=== PATIENT | male | born 1965 | race Caucasian/White ===

== ENCOUNTER 2019-12-01 17:03 | Emergency (ER) | payer SELFPAY ==
[~2019-12-01] VITALS: Ht 182.9 cm; Wt 127.2 kg
[2019-12-01 17:13] VITALS: BP 143/95
[2019-12-01] MEDS ORDERED: DIPH,PERTUSS(ACELL),TET VAC/PF 0.5 ML SYRINGE. VAX IM ONE ×2 (17:41→17:45)
[2019-12-01] MEDS ORDERED: AMOX1TAB61 PO (18:00)
--- NOTE | 2019-12-01 18:00 | PHYS DOC ---
Past Medical History Past Medical History: Hypertension Past Surgical History: No Surgical History Smoking Status: Current Every Day Smoker Additional Information: SMOKES CIGARS/PIPE/WEED Alcohol Use: Occasionally General Adult EDM: Chief Complaint: INSECT BITE HPI: HPI: Patient is a 54 year old male with history of hypertension who presents to the ED today complaining of an area of redness on the right lower extremity that he noted 5 days ago. He is not sure what happened but states he was out in the yard and believes he could have been bit or scratched by a dog or may be some insect bit him. Patient denies any fever. Review of Systems: Review of Systems: Constitutional: Denies fever or chills. [] Musculoskeletal: Denies back pain or joint pain. [] Integument: Reports redness to the right lower extremity Neurologic: Denies headache, focal weakness or sensory changes. [] Psychiatric: Denies depression or anxiety. [] Heart Score: Risk Factors: Risk Factors: DM, Current or recent (<one month) smoker, HTN, HLP, family history of CAD, obesity. Risk Scores: Score 0 - 3: 2.5% MACE over next 6 weeks - Discharge Home Score 4 - 6: 20.3% MACE over next 6 weeks - Admit for Clinical Observation Score 7 - 10: 72.7% MACE over next 6 weeks - Early Invasive Strategies Current Medications: Current Medications Medications (Trade) Dose Ordered Sig/Garima Start Time Stop Time Status Last Admin Dose Admin Diphtheria/ Tetanus/Acell Pertussis (ADACEL TDap SYRINGE) 0.5 ml STK-MED ONCE 12/01/19 17:41 12/01/19 17:41 DC Allergies: Allergies: Allergies Coded Allergies Type Severity Reaction Last Updated Verified No Known Drug Allergies 12/01/19 No Physical Exam: PE: Constitutional: Well developed, well nourished, no acute distress, non-toxic appearance. [] Skin: Warm, dry, right posterior and medial ankle with an area of redness. No drainage hard to decipher if this area is from an insect bite, dog bite or an allergic reaction. There is no warmth to the area, there is no drainage. Back: No tenderness, no CVA tenderness. [] Extremities: No tenderness, no cyanosis, no clubbing, ROM intact, no edema. [] Neurologic: Alert and oriented X 3, normal motor function, normal sensory function, no focal deficits noted. [] Psychologic: Affect normal, judgement normal, mood normal. [] Current Patient Data: Vital Signs: Vital Signs Date Time Temp Pulse Resp B/P (MAP) Pulse Ox O2 Delivery O2 Flow Rate FiO2 12/01/19 17:13 99.1 71 19 143/95 (111) 97 Room Air 99.1 EKG: EKG: [] Radiology/Procedures: Radiology/Procedures: [] Course & Med Decision Making: Course & Med Decision Making Pertinent Labs and Imaging studies reviewed. (See chart for details) This is a 54-year-old male patient presenting to the ED today complaining of an area of redness on the right lower extremity that he noted the 5 days ago, patient not sure if he got bit by a dog or an insect. Patient was given tetanus, discharged on Augmentin. Instructed to keep the area clean and dry. Dragon Disclaimer: Dragon Disclaimer: This electronic medical record was generated, in whole or in part, using a voice recognition dictation system. Departure Departure Impression: Primary Impression: Dog bite of lower extremity Disposition: 01 HOME, SELF-CARE Condition: STABLE Referrals: NO PCP (PCP) follow up with your doctor in 1-2 weeks Patient Instructions: Animal Bite, [id number] Additional Instructions: Please keep the affected area clean and dry, take the prescribed antibiotics until completed. Follow-up with your doctor in 1 to 2 weeks. Scripts Amoxicillin/Potassium Clav (AUGMENTIN 875-125 TABLET) 1 Each Tablet 1 TAB PO BID for 10 Days, #20 TAB 0 Refills Prov: CYNDEE SANCHEZ APRN 12/01/19 CYNDEE SANCHEZ APRN December 01, 2019 18:00
== END 2019-12-01 18:05 | disposition home or self-care (01) ==
LOC: ER 17:03
DX: S81.851A Open bite, right lower leg, initial encounter (principal); I10 Essential (primary) hypertension; F17.290 Nicotine dependence, other tobacco product, uncomplicated; W54.0XXA Bitten by dog, initial encounter; Y93.89 Activity, other specified; Y92.89 Other specified places as the place of occurrence of the external cause; Y99.8 Other external cause status
CPT/HCPCS: 90471; 90715; 99283

== ENCOUNTER 2021-08-10 16:24 | Emergency (ER) | payer SELFPAY ==
[~2021-08-10] VITALS: Ht 182.9 cm; Wt 134.0 kg
[~2021-08-10 16:24] MED LIST: AMOX1TAB61 PO
[2021-08-10] MEDS ORDERED: DEXAMETHASONE 4 MG TABLET PO ONE (18:45)
[2021-08-10] MEDS ORDERED: LIDO:MAALOX 1:1 20 ML SINGLE DOSE. SWSW ONE (18:45)
[2021-08-10 19:30] VITALS: BP 204/118
--- NOTE | 2021-08-10 19:35 | PHYS DOC ---
Past Medical History Past Medical History: Hypertension Additional Past Medical Histor: obesity Past Surgical History: No Surgical History Smoking Status: Current Every Day Smoker Alcohol Use: None General Adult EDM: Chief Complaint: DIFFICULTY SWALLOWING HPI: HPI: Patient is a 55 year old male who presents with this morning he states he started feeling like he is got some thick phlegm in his throat that he feels that he is trying to cough up. He denies a sore throat, coughing up any phlegm, fever, headache, dizziness, neck pain, back pain, chest pain, inability to swallow, numbness or tingling, nasal congestion. He does have a history of hypertension, obesity, smoking. Review of Systems: Review of Systems: Constitutional: Denies fever or chills. [] Eyes: Denies change in visual acuity. [] HENT: Denies nasal congestion or sore throat. + Feels like there is a knot in his throat [] Respiratory: Denies cough or shortness of breath. [] Cardiovascular: Denies chest pain or edema. [] GI: Denies abdominal pain, nausea, vomiting, bloody stools or diarrhea. [] : Denies dysuria. [] Musculoskeletal: Denies back pain or joint pain. [] Integument: Denies rash. [] Neurologic: Denies headache, focal weakness or sensory changes. [] Endocrine: Denies polyuria or polydipsia. [] Lymphatic: Denies swollen glands. [] Psychiatric: Denies depression or anxiety. [] Heart Score: C/O Chest Pain: No Current Medications: Current Medications Medications (Trade) Dose Ordered Sig/Garima Start Time Stop Time Status Last Admin Dose Admin Dexamethasone (Decadron) 10 mg 1X ONCE 08/10/21 18:45 08/10/21 18:46 DC 08/10/21 18:37 10 MG Multi-Ingredient Mouthwash/Gargle (Gi Cocktail) 20 ml 1X ONCE 08/10/21 18:45 08/10/21 18:46 DC 08/10/21 18:37 20 ML Allergies: Allergies: Allergies Coded Allergies Type Severity Reaction Last Updated Verified cat dander Allergy Intermediate sneezing, sob 08/10/21 Yes dog dander Allergy Intermediate sneezing, sob 08/10/21 Yes Physical Exam: PE: Constitutional: Well developed, well nourished, no acute distress, non-toxic appearance. [] HENT: Normocephalic, atraumatic, bilateral external ears normal, oropharynx moist, no oral exudates, nose normal. [] Eyes: PERRLA, EOMI, conjunctiva normal, no discharge. [] Neck: Normal range of motion, no tenderness, supple, no stridor. [] Cardiovascular:Heart rate regular rhythm, no murmur [] Lungs & Thorax: Bilateral breath sounds clear to auscultation [] Abdomen: Bowel sounds normal, soft, no tenderness, no masses, no pulsatile masses. [] Skin: Warm, dry, no erythema, no rash. [] Back: No tenderness, no CVA tenderness. [] Extremities: No tenderness, no cyanosis, no clubbing, ROM intact, no edema. [] Neurologic: Alert and oriented X 3, normal motor function, normal sensory function, no focal deficits noted. [] Psychologic: Affect normal, judgement normal, mood normal. [] Normal Physical Exam Current Patient Data: Vital Signs: Vital Signs Date Time Temp Pulse Resp B/P (MAP) Pulse Ox O2 Delivery O2 Flow Rate FiO2 08/10/21 16:27 98.1 72 18 194/104 (134) 98 Room Air 98.1 EKG: EKG: [] Radiology/Procedures: Radiology/Procedures: [] Course & Med Decision Making: Course & Med Decision Making Pertinent Labs and Imaging studies reviewed. (See chart for details) See HPI. Alert and orient x4. Ambulatory steady gait. Skin pink warm and dry. No respiratory distress. Speaks in full clear sentences. Uvula midline. No trismus. Tonsils are not swollen and there is no redness or exudates. He denies any sinus congestion. Lungs are clear to auscultation all lobes. No wheezing, no stridor. Rapid strep is negative. Patient is given dexamethasone and a GI cocktail p.o. Patient states he is feeling better after medications given. I was told after patient discharged of blood pressure being in 200/100. He is asymptomatic. [] Dragon Disclaimer: Elissa Disclaimer: This electronic medical record was generated, in whole or in part, using a voice recognition dictation system. Departure Departure Impression: Primary Impression: Sore throat Disposition: HOME / SELF CARE / HOMELESS Condition: STABLE Referrals: NO PCP (PCP) Patient Instructions: Salt Water Gargle, Sore Throat Additional Instructions: Follow-up with your primary care doctor. Try salt water gargles. Try Mucinex [id number]. Try taking allergy medicine also. If at any point you begin running a fever or you cannot swallow your own saliva or any fluids return to the emergency room. Drink plenty of fluids. STEPHANI VASQUEZ APRN Aug 10, 2021 19:34
== END 2021-08-10 20:05 | disposition home or self-care (01) ==
LOC: ER 16:24
DX: J02.9 Acute pharyngitis, unspecified (principal); I10 Essential (primary) hypertension; F17.200 Nicotine dependence, unspecified, uncomplicated; Z88.8 Allergy status to other drugs, medicaments and biological substances
CPT/HCPCS: 87070; 87880; 99283